=== PATIENT | female | born 1965 | race American Indian/Alaskan Native ===

== ENCOUNTER 2016-10-18 09:44 | Observation (INO) | payer BC, OTHER ==
[2016-10-18] MEDS ORDERED: Sodium Chloride 0.9% 1,000 ML IV ONE (10:07)
[2016-10-18] MEDS ORDERED: Sodium Chloride 0.9% 1,000 ML ONE (10:21)
[2016-10-18 10:40] LABS: BASO % 0.4 % (0.0-2.0); EOS % 0.1 % (0.0-4.0); LYMPH # 1.7 K/uL (1.0-4.3); LYMPH % 20.1 % (20.0-40.0); MEAN CELL VOLUME 79.8 fL (81.0-99.0); MEAN CORPUSCULAR HEMOGLOBIN 25.5 pg (27.0-31.0); MONO # 0.6 K/uL (0.0-0.8); MONO % 7.7 % (0.0-10.0); NEUT # 5.9 K/uL (1.8-7.0); NEUT % 71.7 % (50.0-75.0); NRBC % 0.1 % (0.0-2.0); RBC 5.1 Mil/uL (3.80-5.20); WHITE BLOOD COUNT 8.3 K/uL (4.8-10.8)
--- NOTE | 2016-10-18 10:44 | C.PDOC ---
History Of Present Illness 50 y/o female presents to the ED with complaints of vomiting and diarrhea since yesterday with associated abdominal pain. Patient reports pain is mild crampin, generalized and presents before diarrhea episode. Patient states vomiting stopped last night, but still has diarrhea today. Patient reports feeling weak and dehydrated. Denies fever, chills, chest pain, SOB or any other complaints. Pt's daughter sick last with with the flu. Time Seen by Provider: 10/18/16 10:00 Chief Complaint (Nursing): Abdominal Pain History Per: Patient History/Exam Limitations: no limitations Onset/Duration Of Symptoms: Hrs Current Symptoms Are (Timing): Still Present Severity: Moderate Location Of Pain/Discomfort: Diffuse Radiation Of Pain To:: None Quality Of Discomfort: "Pain" Associated Symptoms: Vomiting, Diarrhea. denies: Fever, Chills, Chest Pain Exacerbating Factors: None Alleviating Factors: None Recent travel outside of the [place]: No Past Medical History Reviewed: Historical Data, Nursing Documentation, Vital Signs Vital Signs: Last Vital Signs Temp 98.5 F 10/18/16 16:29 Pulse 73 10/18/16 16:29 Resp 20 10/18/16 16:29 BP 104/62 10/18/16 16:29 Pulse Ox 99 10/18/16 17:02 - Medical History PMH: Anemia, HTN Surgical History: No Surg Hx - [facility] Procedures INSPECTION OF LOWER INTESTINAL TRACT, ENDO (06/09/14) Family History: States: Unknown Family Hx - Social History Hx Tobacco Use: Yes Hx Alcohol Use: (FOR SPECIAL OCCASION) Hx Substance Use: No - Immunization History Hx Tetanus Toxoid Vaccination: No Hx Influenza Vaccination: No Hx Pneumococcal Vaccination: No Review Of Systems Constitutional: Positive for: Weakness, Other (dehydrated). Negative for: Fever , Chills Cardiovascular: Negative for: Chest Pain Respiratory: Negative for: Shortness of Breath Gastrointestinal: Positive for: Vomiting, Abdominal Pain, Diarrhea Physical Exam - Physical Exam Appears: Non-toxic, No Acute Distress Skin: Warm, Dry, No Rash Head: Atraumatic, Normacephalic Eye(s): bilateral: Normal Inspection, EOMI Oral Mucosa: Moist Neck: Normal, Normal ROM, Supple Chest: Symmetrical Cardiovascular: Rhythm Regular, No Murmur Respiratory: Normal Breath Sounds, No Rales, No Rhonchi, No Wheezing Gastrointestinal/Abdominal: Bowel Sounds (active), Soft, Tenderness (generalized , nonfocal), No Distention, No Guarding, No Rebound, No Hernia Extremity: Bilateral: Atraumatic, Normal Color And Temperature, Normal ROM Neurological/Psych: Oriented x3, Normal Speech Gait: Steady ED Course And Treatment - Laboratory Results Result Diagrams: 10/18/16 10:36 10/18/16 10:36 Lab Interpretation: Abnormal O2 Sat by Pulse Oximetry: 99 (room air) Pulse Ox Interpretation: Normal Medical Decision Making Medical Decision Making: Plan: * labs * pepcid * protonix * UA * IV fluids Progress: Obs-ED ED OBSERVATION Discharge: Yes Date of observation admission: 10/18/16 Time of observation admission: 10:20 - Observation admission statement Patient is being placed in observation because:: GI sx: vomit, diarrhea,abd pain - Goals of Observation Goals of observation are:: IV hydration and analgesics - Progress Note Progress Note: 10/18/16 Labs reviewed, hypoglycemia, no leukocytosis. will try oral orange juice and sandwich and observe 10/18/16 12:15 accucheck 49 Patient alert and awake, no abdominal pain 10/18/16 13:46 accucheck 50 10/18/16 14:47 accucheck 160 10/18/16 15:40 accucheck 107 10/18/16 14:54 Will continue to observe, repeat in one hour 10/18/16 16:07 repeat accucheck was 107. Patient reevaluated and is feeling better. She feels comfortable with discharge Disposition Counseled Patient/Family Regarding: Studies Performed, Diagnosis, Need For Followup, Rx Given - Disposition Disposition: HOME/ ROUTINE Disposition Time: 16:11 Condition: IMPROVED - POA Present On Arrival: Poor Glycemic Control - Clinical Impression Clinical Impression: Gastroenteritis, Hypoglycemia - PA / RESPIRATORY SUPERVISOR / Resident Statement MD/DO has reviewed & agrees with the documentation as recorded. - Scribe Statement The provider has reviewed the documentation as recorded by the Debbieibminerva Hendrix All medical record entries made by the Debbieibminerva were at my direction and personally dictated by me. I have reviewed the chart and agree that the record accurately reflects my personal performance of the history, physical exam, medical decision making, and the department course for this patient. I have also personally directed, reviewed, and agree with the discharge instructions and disposition.
[2016-10-18 11:05] LABS: ALBUMIN 3.7 g/dL (3.5-5.0)
[2016-10-18 11:08] LABS: AST/SGOT 52 U/L (14-36); BLOOD UREA NITROGEN 17 mg/dL (7-17); GFR AFRICAN-AMERICAN > 60; GFR NON-AFRICAN AMERICAN > 60
[2016-10-18 11:09] LABS: ALT/SGPT 31 U/L (9-52); CALCIUM 7.7 mg/dl (8.6-10.4); LIPASE 87 U/L (23-300)
[2016-10-18 13:48] LABS: SQUAMOUS EPITHIAL 3 /hpf (0-5); URINE BACTERIA RARE (<OCC); URINE BILIRUBIN NEGATIVE (NEGATIVE); URINE BLOOD 1+ (NEGATIVE); URINE CLARITY Clear (Clear); URINE COLOR Yellow (YELLOW); URINE GLUCOSE (UA) 2+ mg/dL (Normal); URINE LEUKOCYTE ESTERASE 3+ Leu/uL (Negative); URINE NITRATE NEGATIVE (NEGATIVE); URINE PROTEIN NEGATIVE (NEGATIVE); URINE UROBILINOGEN NORMAL mg/dL (0.2-1.0)
[2016-10-18] MEDS ORDERED: Dextrose 50% SYRINGE Inj (50 ml) IVP STA (13:58)
[2016-10-18] MEDS ORDERED: Dextrose 50% SYRINGE Inj (50 ml) ONE (14:09)
[2016-10-18 16:29] VITALS: BP 104/62; PULSE 73; RESP 20; TEMP 98.5
[2016-10-18 17:02] VITALS: O2SAT 99
== END 2016-10-18 16:12 | disposition home or self-care (01) ==
LOC: C.ER 09:44 → C.9OBSV 10:20
PROVIDERS: ADMIT Emergency Medicine; ATTEND Emergency Medicine
DX: K52.9 Noninfective gastroenteritis and colitis, unspecified (principal); E16.2 Hypoglycemia, unspecified; E86.0 Dehydration; I10 Essential (primary) hypertension; Z87.891 Personal history of nicotine dependence
CPT/HCPCS: 80053; 81001; 82948; 83690; 85025; 96374; 96375; 99285; G0378; J7040

== ENCOUNTER 2016-10-20 09:04 | Observation (INO) | payer BC ==
[2016-10-20 09:09] VITALS: BMI 25.8
[2016-10-20 10:11] LABS: MEAN PLATELET VOLUME 9.1 fL (7.2-11.7); NRBC % 0.1 % (0.0-2.0)
[2016-10-20 10:16] LABS: BASO % 0.7 % (0.0-2.0); CHLORIDE 100 mmol/L (98-107); EOS % 0.7 % (0.0-4.0); HEMATOCRIT 43.1 % (34.0-47.0); LYMPH # 1.7 K/uL (1.0-4.3); LYMPH % 31.3 % (20.0-40.0); MEAN CELL VOLUME 79.7 fL (81.0-99.0); MEAN CORPUSCULAR HEMOGLOBIN 25.5 pg (27.0-31.0); MONO # 0.6 K/uL (0.0-0.8); MONO % 10.9 % (0.0-10.0); RED CELL DISTRIBUTION WIDTH 15.4 % (11.5-14.5); SODIUM 137 mmol/L (132-148); WHITE BLOOD COUNT 5.5 K/uL (4.8-10.8)
[2016-10-20 10:18] LABS: GFR AFRICAN-AMERICAN > 60
[2016-10-20 10:19] LABS: ALB/GLOB RATIO 0.9 (1.0-2.1); ALKALINE PHOSPHATASE 74 U/L (38-126); ALT/SGPT 38 U/L (9-52); AST/SGOT 57 U/L (14-36); BILIRUBIN,TOTAL 0.8 mg/dL (0.2-1.3); BLOOD UREA NITROGEN 12 mg/dL (7-17); CARBON DIOXIDE 21 mmol/L (22-30); GLUCOSE,RANDOM 87 mg/dL (65-105); TOTAL PROTEIN 8.9 g/dL (6.3-8.3)
[2016-10-20 10:20] LABS: CALCIUM 8.3 mg/dl (8.6-10.4)
--- NOTE | 2016-10-20 10:23 | CT ---
PROCEDURE: CT HEAD WITHOUT CONTRAST. HISTORY: Dizziness COMPARISON: None available. TECHNIQUE: Axial computed tomography images were obtained through the head/brain without intravenous contrast. Radiation dose: Total exam DLP = 783.50 mGy-cm. This CT exam was performed using one or more of the following dose reduction techniques: Automated exposure control, adjustment of the mA and/or kV according to patient size, and/or use of iterative reconstruction technique. FINDINGS: HEMORRHAGE: No intracranial hemorrhage. BRAIN: Kerr-white matter differentiation is preserved. There is no mass, mass effect or abnormal extra-axial fluid collection. VENTRICLES: There is mild global parenchymal volume loss and proportionate enlargement of the ventricles and cortical sulci, advanced for the patient's age. CALVARIUM: The skull base and calvarium are normal. PARANASAL SINUSES: Predominantly clear. MASTOID AIR CELLS: Predominantly clear. OTHER FINDINGS: None. IMPRESSION: No acute intracranial abnormality. Mild global parenchymal volume loss, advanced for the patient's age.
[2016-10-20 10:25] LABS: RBC URINE < 1 /hpf (0-3); URINE BILIRUBIN NEGATIVE (NEGATIVE); URINE BLOOD NEGATIVE (NEGATIVE); URINE COLOR Straw (YELLOW); URINE GLUCOSE (UA) 3+ mg/dL (Normal); URINE KETONE NEGATIVE (NEGATIVE); URINE LEUKOCYTE ESTERASE NEG Leu/uL (Negative); URINE PROTEIN NEGATIVE (NEGATIVE); URINE UROBILINOGEN NORMAL mg/dL (0.2-1.0); WBC URINE 2 /hpf (0-5)
[2016-10-20 10:27] LABS: POTASSIUM 4.1 mmol/L (3.6-5.2)
--- NOTE | 2016-10-20 11:11 | C.PDOC ---
History Of Present Illness <Myranda Poole - Last Filed: 10/20/16 13:19> <Grisel Fuchs - Last Filed: 10/20/16 13:59> Patient is a 50 y/o female, whose PMH includes HTN, Diabetes, and vertigo, that presents to the ED for evaluation of episode of dizziness this morning at 3: 00am. Patient states that she woke up at 3:00 this morning to use bathroom, reports slurred speech, and reports having unsteady gait, and feeling of being "drunk". Patient states that she went back to sleep and woke up at 6:00 with her symptoms resolved. Patient was seen here in the ER 2 days ago for abdominal pain, nausea, and vomiting which has also resolved. Otherwise, denies any dizziness, headache, weakness, numbness, chest pain, shortness of breath, or any other associated symptoms at this time. (Grisel Fuchs) <Myranda Poole - Last Filed: 10/20/16 13:19> History Per: Patient History/Exam Limitations: no limitations Onset/Duration Of Symptoms: Hrs Current Symptoms Are (Timing): Gone Severity: None Pain Scale Rating Of: 0 Reports Recently: Seen In ED Recent travel outside of the [place]: No Additional History Per: Patient <Grisel Fuchs - Last Filed: 10/20/16 13:59> Time Seen by Provider: 10/20/16 09:20 Chief Complaint (Nursing): Dizziness/Lightheaded Past Medical History Reviewed: Historical Data, Nursing Documentation, Vital Signs - Medical History PMH: Anemia, Diabetes, HTN Family History: States: Unknown Family Hx - Social History Hx Tobacco Use: Yes Hx Alcohol Use: (FOR SPECIAL OCCASION) Hx Substance Use: No - Immunization History Hx Tetanus Toxoid Vaccination: No Hx Influenza Vaccination: No Hx Pneumococcal Vaccination: No <Grisel Fuchs - Last Filed: 10/20/16 13:59> Vital Signs: Last Vital Signs Temp 98.2 F 10/20/16 12:38 Pulse 60 10/20/16 12:38 Resp 18 10/20/16 12:38 BP 124/76 10/20/16 12:38 Pulse Ox 100 10/20/16 13:10 - [facility] Procedures INSPECTION OF LOWER INTESTINAL TRACT, ENDO (06/09/14) Review Of Systems Except As Marked, All Systems Reviewed And Found Negative. Constitutional: Negative for: Fever, Chills Eyes: Negative for: Vision Change Cardiovascular: Negative for: Chest Pain, Palpitations, Light Headedness Respiratory: Negative for: Shortness of Breath Gastrointestinal: Negative for: Nausea, Vomiting, Abdominal Pain Neurological: Positive for: Headache, Dizziness. Negative for: Weakness, Numbness, Change in Speech <Grisel Fuchs - Last Filed: 10/20/16 13:59> Physical Exam - Physical Exam Appears: Non-toxic, No Acute Distress Skin: Normal Color, Warm, Dry Head: Atraumatic, Normacephalic Eye(s): bilateral: Normal Inspection, PERRL, EOMI, Other (no nystagmus) Nose: Normal Oral Mucosa: Moist Neck: Normal ROM, Supple Chest: Symmetrical, No Tenderness Cardiovascular: Rhythm Regular, No Murmur Respiratory: Normal Breath Sounds, No Accessory Muscle Use, No Rales, No Rhonchi , No Wheezing Gastrointestinal/Abdominal: Bowel Sounds, Soft, No Tenderness, No Distention, No Guarding Extremity: Bilateral: Atraumatic, Normal Color And Temperature, Normal ROM Pulses: Left Radial: Normal Neurological/Psych: Oriented x3, Normal Speech, Normal Cognition, Normal Cranial Nerves, No Cerebellar Signs, Normal Motor, Normal Sensation, Other ( neuro intact) Gait: Steady <Grisel Fuchs - Last Filed: 10/20/16 13:59> ED Course And Treatment - Laboratory Results Result Diagrams: 10/20/16 10:05 10/20/16 10:05 <Myranda Poole - Last Filed: 10/20/16 13:19> - Laboratory Results Result Diagrams: 10/20/16 10:05 10/20/16 10:05 Lab Interpretation: No Acute Changes ECG: Interpreted By Me, Viewed By Me ECG Rhythm: Sinus Rhythm ECG Interpretation: No Acute Changes Rate From EC (bpm) O2 Sat by Pulse Oximetry: 100 (on RA) Pulse Ox Interpretation: Normal Progress Note: Head CT, EKG, labs ordered and reviewed. On reassessment, patient is resting comfortably in bed, no acute distress. No neurological deficits. Discussed case with DR Poole who agrees with plan for admission for TIA. Contact DR Laura Matthews who admits for Dr Navarro, and he accepts and asks to call Dr Kathleen for admitting orders. <Grisel Fuchs - Last Filed: 10/20/16 13:59> Supervising Attending Note - Supervising Attending Note The Documented history was done by the: Physician Roller Print Tender The documented physical exam was done by the: Physician Roller Print Tender The documented procedures were done by the: Physician Roller Print Tender - Attestation: I have personally seen and examined this patient.: Yes I have fully participated in the care of the patient.: Yes I have reviewed all pertinent clinical information, including history, physical exam and plan: Yes <Myranda Poole - Last Filed: 10/20/16 13:19> <Grisel Fuchs - Last Filed: 10/20/16 13:59> - Notes: Notes:: DIFFICULTY WALKING, SLURRED SPEECH @ 0200 NOW RESOLVED. CURRENTLY ASYMPT. EXAM ABOVE. ADMIT TIA (Myranda Poole) NIHSS Stroke Scale - Date/Time Evaluation Performed Date Performed: 10/20/16 Time Performed: 09:20 When Was NIHSS Performed: Baseline - How Severe is the Stroke Level of Consciousness: 0=Alert LOC to Questions: 0=Both comments correct LOC to commands: 0=Obeys both correctly Best Gaze: 0=Normal Visual: 0=No visual loss Facial: 0=Normal Motor Arm - Left: 0=No drift Motor Arm - Right: 0=No drift Motor Leg - Left: 0=No drift Motor Leg - Right: 0=No drift Limb Ataxia: 0=Absent Sensory: 0=Normal Best Language: 0=No aphasia Dysarthia: 0=Normal articulation Extinction & Inattention (Neglect): 0=Normal, no object Score: 0 <Grisel Fuchs - Last Filed: 10/20/16 13:59> rTPA Inclusion/Exclusion - Refusal of Treatment Patient Refused Treatment: No - Inclusion Criteria for Altepase Patient is 18 years or Older: Yes The Clinical Diagnosis of Ischemic Stroke That is Causing a Potentially Disabling Neurological Deficit: No Time of Onset is Well Established to be Less Than 270 Minute Before Treatment Would Begin: No Risk/Benefit Discussed With Patient/Family Member Present: No - Exclusion Criteria for Altepase Uncontrolled Hypertension at Time of Treatment (Systolic BP above 185 or Diastolic BP above 110 mmHg): No Active Internal Bleeding: No Known Bleeding Diathesis Including but Not Limited to: Platelets Below 100,000/ mm,PTT Above 40 sec After Heparin Use, Current Use of Oral Anitcoagulant With INR Greater Than 1.7 or PT Greater Than 15 secs: No Evidence of an Intracranial Hemorrhage: No Evidence of Major Acute Infarct With Signs Greater Than 1/3 MCA Territory: No Suspicion of Subarachnoid Hemorrhage on Pretreatment Evaluation Even if CT Head Negative For Hemorrhage: No - Warning to TPA With Conditions Following Conditions Weighed Against Anticipated Benefit: Yes Condition: Stroke Serevity Too Mild <Myranda Poole - Last Filed: 10/20/16 13:19> - Refusal of Treatment Patient Refused Treatment: No - Inclusion Criteria for Altepase Patient is 18 years or Older: Yes The Clinical Diagnosis of Ischemic Stroke That is Causing a Potentially Disabling Neurological Deficit: No Time of Onset is Well Established to be Less Than 270 Minute Before Treatment Would Begin: No Risk/Benefit Discussed With Patient/Family Member Present: No <Grisel Fuchs - Last Filed: 10/20/16 13:59> Disposition <Myranda Poole - Last Filed: 10/20/16 13:19> - Disposition Disposition Time: 11:15 - POA Present On Arrival: None <Grisel Fuchs - Last Filed: 10/20/16 13:59> - Disposition Disposition: HOSPITALIZED Condition: STABLE - Clinical Impression Clinical Impression: TIA (transient ischemic attack), Dizziness <Myranda Poole - Last Filed: 10/20/16 13:19> - PA / BALLOON SELLER / Resident Statement / has reviewed & agrees with the documentation as recorded. - Scribe Statement The provider has reviewed the documentation as recorded by the Scribe <Grisel Fuchs - Last Filed: 10/20/16 13:59> - Scribe Statement Iraida Matthews All medical record entries made by the Scribe were at my direction and personally dictated by me. I have reviewed the chart and agree that the record accurately reflects my personal performance of the history, physical exam, medical decision making, and the department course for this patient. I have also personally directed, reviewed, and agree with the discharge instructions and disposition. (Grisel Fuchs) Decision To Admit - Pt Status Changed To: Hospital Disposition Of: Observation - . Bed Request Type: Telemetry Admitting Physician: Neto Matthews <Grisel Fuchs - Last Filed: 10/20/16 13:59> - . Patient Diagnosis: TIA (transient ischemic attack), Dizziness
--- NOTE | 2016-10-20 16:36 | CP.PCM.HP ---
History of Present Illness - History of Present Illness History of Present Illness: Patient is a 50 y/o female, whose PMH includes HTN, Diabetes, and vertigo, that presents to the ED for evaluation of episode of dizziness this morning at 3: 00am. Patient states that she woke up at 3:00 this morning to use bathroom, reports slurred speech, and reports having unsteady gait, and feeling of being "drunk". Patient states that she went back to sleep and woke up at 6:00 with her symptoms resolved. Patient was seen here in the ER 2 days ago for abdominal pain, nausea, and vomiting which has also resolved. Otherwise, denies any dizziness, headache, weakness, numbness, chest pain, shortness of breath, or any other associated symptoms at this time. Present on Admission - Present on Admission Any Indicators Present on Admission: No History of DVT/PE: No History of Uncontrolled Diabetes: No Urinary Catheter: No Decubitus Ulcer Present: No Review of Systems - Review of Systems All systems: reviewed and no additional remarkable complaints except (As mentioned in HPI) Past Patient History - Infectious Disease Hx of Infectious Diseases: None - Tetanus Immunizations Tetanus Immunization: Unknown - Past Medical History & Family History Past Medical History?: Yes - Past Social History Smoking Status: Never Smoked - CARDIAC Hx Cardiac Disorders: Yes Hx Hypertension: Yes - PULMONARY Hx Respiratory Disorders: No - NEUROLOGICAL Hx Neurological Disorder: No - HEENT Hx HEENT Problems: No - RENAL Hx Chronic Kidney Disease: No - ENDOCRINE/METABOLIC Hx Endocrine Disorders: No - HEMATOLOGICAL/ONCOLOGICAL Hx Blood Disorders: Yes Hx Anemia: Yes - INTEGUMENTARY Hx Dermatological Problems: No - MUSCULOSKELETAL/RHEUMATOLOGICAL Hx Musculoskeletal Disorders: No Hx Falls: No - GASTROINTESTINAL Hx Gastrointestinal Disorders: No - GENITOURINARY/GYNECOLOGICAL Hx Genitourinary Disorders: No - PSYCHIATRIC Hx Psychophysiologic Disorder: No Hx Substance Use: No - SURGICAL HISTORY Hx Surgeries: Yes Hx Hysterectomy: Yes - ANESTHESIA Hx Anesthesia: Yes Hx Anesthesia Reactions: No Hx Malignant Hyperthermia: No Meds Home Medications: Home Medication List Medication Instructions Recorded Confirmed Type Insulin Glargine, Recombina 8 unit SQ HS #1 vial 10/23/16 Rx [Lantus] Allergies/Adverse Reactions: Allergies Allergy/AdvReac Type Severity Reaction Status Date / Time Sulfa (Sulfonamide Allergy Verified 10/20/16 09:13 Antibiotics) EGGPLANT Allergy Intermediate ITCHING Uncoded 10/20/16 09:13 Physical Exam - Head Exam Head Exam: NORMAL INSPECTION - Eye Exam Eye Exam: Normal appearance - ENT Exam ENT Exam: Mucous Membranes Moist - Respiratory Exam Respiratory Exam: Clear to Auscultation Bilateral, NORMAL BREATHING PATTERN - Cardiovascular Exam Cardiovascular Exam: REGULAR RHYTHM, +S1, +S2 - GI/Abdominal Exam GI & Abdominal Exam: Normal Bowel Sounds, Soft - Extremities Exam Extremities exam: Positive for: normal inspection - Neurological Exam Neurological exam: Alert, Oriented x3 - Psychiatric Exam Psychiatric exam: Normal Affect, Normal Mood Results - Vital Signs Recent Vital Signs: Last Vital Signs Temp 98.8 F 10/20/16 15:54 Pulse 67 10/20/16 15:54 Resp 18 10/20/16 15:54 BP 114/72 10/20/16 15:54 Pulse Ox 97 10/20/16 15:54 - Labs Result Diagrams: 10/20/16 10:05 10/20/16 10:05 Assessment & Plan - Assessment and Plan (Free Text) Assessment: Dizziness Hypoglycemia Hypertension History of diabetes Neurology consult IV hydration Hydrochlorothiazide Aspirin Norvasc Lisinopril Metoprolol Accu-Chek Insulin sliding scale Metformin DVT/GI prophylax
[2016-10-20] MEDS: (Lantus) Insulin Glargine, Recombinant SC SCH (21:30)
[2016-10-20] MEDS: (Novolog) Insulin Aspart, Recombinant 100 u/ml 10 ml vial SC SCH (21:31)
[2016-10-21] MEDS: (Novolog) Insulin Aspart, Recombinant 100 u/ml 10 ml vial SC SCH ×4 (07:57→21:38)
[2016-10-21] MEDS: Pantoprazole 20 mg EC Tab PO SCH (09:50)
--- NOTE | 2016-10-21 13:48 | CP.PCM.PN ---
Subjective - Date & Time of Evaluation Date of Evaluation: 10/21/16 Time of Evaluation: 13:48 - Subjective Subjective: Patient seen and examined Feels better Objective - Vital Signs/Intake and Output Vital Signs (last 24 hours): Temp Pulse Resp BP Pulse Ox 98.4 F 64 17 116/75 100 10/21/16 07:25 10/21/16 07:25 10/21/16 07:25 10/21/16 09:50 10/21/16 07:25 Intake and Output: 10/21/16 10/21/16 06:59 18:59 Intake Total 310 Balance 310 - Medications Medications: Current Medications Acetaminophen (Tylenol 325mg Tab) 650 mg PO Q6 PRN PRN Reason: headache Last Admin: 10/20/16 17:28 Dose: 650 mg Amlodipine Besylate (Norvasc) 2.5 mg PO DAILY PENDING SALE TO [facility] Last Admin: 10/21/16 09:50 Dose: 2.5 mg Aspirin (Aspirin) 325 mg PO DAILY PENDING SALE TO [facility] Last Admin: 10/21/16 09:50 Dose: 325 mg Dicyclomine HCl (Bentyl) 10 mg PO QID PENDING SALE TO [facility] Last Admin: 10/21/16 13:19 Dose: 10 mg Hydrochlorothiazide (Microzide) 12.5 mg PO DAILY PENDING SALE TO [facility] Last Admin: 10/21/16 13:19 Dose: 12.5 mg Insulin Aspart (Novolog) 0 unit SC [facility] PENDING SALE TO [facility] PRN Reason: Protocol Last Admin: 10/21/16 07:57 Dose: Not Given Insulin Glargine (Lantus) 14 unit SC HS PENDING SALE TO [facility] Last Admin: 10/20/16 21:30 Dose: Not Given Lisinopril (Zestril) 10 mg PO DAILY PENDING SALE TO [facility] Last Admin: 10/21/16 09:50 Dose: 10 mg Losartan Potassium (Cozaar) 50 mg PO DAILY PEND[facility] S[facility] Last Admin: 10/21/16 09:51 Dose: 50 mg Metformin HCl (Glucophage) 500 mg PO BIDBS PENDING SALE TO [facility] Last Admin: 10/21/16 12:27 Dose: Not Given Metoprolol Tartrate (Lopressor) 25 mg PO BID PENDING S[facility] Last Admin: 10/21/16 09:50 Dose: 25 mg Pantoprazole Sodium (Protonix Ec Tab) 20 mg PO DAILY PENDING S[facility] Last Admin: 10/21/16 09:50 Dose: 20 mg Pneumococcal Polyvalent Vaccine (Pneumovax 23 Vaccine) 0.5 ml IM .ONCE ONE Stop: 10/22/16 10:01 Rosuvastatin Calcium (Crestor) 5 mg PO HS PENDING SALE TO [facility] Last Admin: 10/20/16 21:29 Dose: 5 mg - Head Exam Head Exam: NORMAL INSPECTION - Eye Exam Eye Exam: Normal appearance - ENT Exam ENT Exam: Mucous Membranes Moist - Respiratory Exam Respiratory Exam: Clear to Ausculation Bilateral, NORMAL BREATHING PATTERN - Cardiovascular Exam Cardiovascular Exam: REGULAR RHYTHM, +S1, +S2 - GI/Abdominal Exam GI & Abdominal Exam: Soft, Normal Bowel Sounds - Extremities Exam Extremities Exam: Normal Inspection Assessment and Plan - Assessment and Plan (Free Text) Assessment: Dizziness ? TIA Hypoglycemia Hypertension History of diabetes Awaiting Neurology consult IV hydration Hydrochlorothiazide Aspirin Norvasc Lisinopril Metoprolol Accu-Chek Insulin sliding scale Metformin DVT/GI prophylax
--- NOTE | 2016-10-21 13:49 | MRI ---
PROCEDURE: MRI BRAIN WITHOUT CONTRAST HISTORY: slurred speech COMPARISON: Noncontrast head CT from 10/20/2016. TECHNIQUE: Multiplanar, multisequence MR images of the brain were obtained without intravenous contrast enhancement. FINDINGS: HEMORRHAGE: None DWI: No evidence of an acute or early subacute infarction. BRAIN PARENCHYMA: There is no mass, mass effect or abnormal extra-axial fluid collection. There is no territorial infarction. The midline sagittal structures are normal. VENTRICLES: There is mild global parenchymal volume loss, slightly advanced for the patient's age. CRANIUM: There is normal bone marrow signal pattern. ORBITS: Grossly unremarkable. PARANASAL SINUSES/MASTOIDS: Predominantly clear. VASCULAR SYSTEM: There are normal signal voids in the larger intracranial arteries. OTHER FINDINGS: None. IMPRESSION: No acute intracranial abnormality. Specifically, no evidence of acute infarction.
--- NOTE | 2016-10-21 14:02 | CP.PCM.CON ---
History of Present Illness - History of Present Illness History of Present Illness: NEURO CONSULT NOTE: 10/21/16 CHIEF COMPLAINT:DIZZINESS, ? SLURRED SPEECH. HPI: 50 YEAR OLD WOMAN WITH HISTORY OF HTN, HLD, DM2 , VERTIGO WHO PRESENTS WITH DIZZINESS IN TERMS OF LIGHTHEADEDNESS AND MILD SPINNING OF THE ROOM WITH EPISODE OF SLURRED SPEECH AND GENERALIZED WEAKNESS. CT HEAD AND MRI BRAIN SHOWED NO ACUTE ABNORMALITIES, JUST MILD ATROPHY. bLOOD SUGAR WAS 48 AND COUPLE READINGS OF LOW BS. CURRENTLY IN NOW ACUTE DISTRESS, MOVING ALL EXTREMITIES. ROS: 14 POINT REVIEW OF SYMPTOMS IS NEGATIVE PER HPI. ALLERGIES: SULFA SOCIAL HISTORY: NO ILLICIT DRUG USE, SMOKING, OR ETOH USE. FAMILY: NON CONTRIBUTORY. MEDICATIONS: REVIEWED BY NURSE'S RECONCILIATION SHEET. PAST MEDICAL HISTORY: HTN, DM2, HLD, VERTIGO PHYSICAL EXAM: VITAL SIGNS: REVIEWED BY THE CHART GENERAL EXAM: PATIENT SEEN IN BED, IN NO ACUTE DISTRESS HEENT: PERRLA, EOMI, NECK SUPPLE, NO JVD, NO ADENOPATHY CVS: S1, S2, RRR, NO MURMURS NOTED LUNGS: CLEAR TO AUSCULTATION, NO ADVENTITIOUS SOUNDS ABDOMEN: SOFT AND NONTENDER EXTREMITIES: NO CLUBBING OR CYANOSIS. PP 2+ B/L NEURO: PT IS ALERT AND ORIENTED TO PERSON, PLACE, AND YEAR. , RECALL TO 5 MINUTES 1/3, POOR ATTENTION SPAN. SPEECH IS FLUENT WITHOUT ERRORS, CN II-XII INTACT, LEGALLY BLIND IN BOTH EYES. MOTOR EXAM: NORMAL TONE, NORMAL BULK OF MUSCLE, MOVES ALL EXTREMITIES EQUALLY, NO PRONATOR DRIFT SEEN SENSORY EXAM: DECREASED LIGHT TOUCH, PIN PRICK UP TO CALVES B/L, PROPRIOCEPTION IS INTACT , DECREASED VIBRATION AT TOES AND KNESS DEEP TENDON REFLEXES: 2+ THROUGHOUT AND ABSENT AT KNEES AND ANKLES. COORDINATION: FINGER TO NOSE IS INTACT. GAIT:DEFERRED. LABS: REVIEWED BY THE CHART. ASSESSMENT AND PLAN: 50 YEAR OLD WOMAN WITH HISTORY OF HTN, HLD, DM2 , VERTIGO WHO PRESENTS WITH DIZZINESS IN TERMS OF LIGHTHEADEDNESS AND MILD SPINNING OF THE ROOM WITH EPISODE OF SLURRED SPEECH AND GENERALIZED WEAKNESS. CT HEAD AND MRI BRAIN SHOWED NO ACUTE ABNORMALITIES, JUST MILD ATROPHY. BLOOD SUGAR WAS 48 AND COUPLE READINGS OF LOW BS. CURRENTLY IN NOW ACUTE DISTRESS, MOVING ALL EXTREMITIES. IMPRESSION: GENERALIZED WEAKNESS AND DIZZINESS SECONDARY TO HYPOGLYCEMIA TRANSIENT. 1. C/W ASA 81 MG , ATORVASTATIN 40 MG PO DAILY FOR STROKE PREVENTION 2. KEEP BP BTW 123-130 MM HG 3. KEEP BLOOD SUGARS BTW 140-180. DIABETIC DIET ADVISED. DIABETIC EDUCATION ADVISED. 4. NEEDS PHYSICAL THERAPY EVALUATION. AND BRANDEE AT TCU 5. C/W PRESENT MEDICAL MANAGEMENT. THANK YOU Keshawn JACKSON MD Past Patient History - Infectious Disease Hx of Infectious Diseases: None - Tetanus Immunizations Tetanus Immunization: Unknown - Past Medical History & Family History Past Medical History?: Yes - Past Social History Smoking Status: Never Smoked - CARDIAC Hx Cardiac Disorders: Yes Hx Hypertension: Yes - PULMONARY Hx Respiratory Disorders: No - NEUROLOGICAL Hx Neurological Disorder: No - HEENT Hx HEENT Problems: No - RENAL Hx Chronic Kidney Disease: No - ENDOCRINE/METABOLIC Hx Endocrine Disorders: No - HEMATOLOGICAL/ONCOLOGICAL Hx Blood Disorders: Yes Hx Anemia: Yes - INTEGUMENTARY Hx Dermatological Problems: No - MUSCULOSKELETAL/RHEUMATOLOGICAL Hx Musculoskeletal Disorders: No Hx Falls: No - GASTROINTESTINAL Hx Gastrointestinal Disorders: No - GENITOURINARY/GYNECOLOGICAL Hx Genitourinary Disorders: No - PSYCHIATRIC Hx Psychophysiologic Disorder: No Hx Substance Use: No - SURGICAL HISTORY Hx Surgeries: Yes Hx Hysterectomy: Yes - ANESTHESIA Hx Anesthesia: Yes Hx Anesthesia Reactions: No Hx Malignant Hyperthermia: No Meds Allergies/Adverse Reactions: Allergies Allergy/AdvReac Type Severity Reaction Status Date / Time Sulfa (Sulfonamide Allergy Verified 10/20/16 09:13 Antibiotics) EGGPLANT Allergy Intermediate ITCHING Uncoded 10/20/16 09:13 - Medications Medications: Current Medications Acetaminophen (Tylenol 325mg Tab) 650 mg PO Q6 PRN PRN Reason: headache Last Admin: 10/20/16 17:28 Dose: 650 mg Amlodipine Besylate (Norvasc) 2.5 mg PO DAILY [facility] Last Admin: 10/21/16 09:50 Dose: 2.5 mg Aspirin (Aspirin) 325 mg PO DAILY [facility] Last Admin: 10/21/16 09:50 Dose: 325 mg Dicyclomine HCl (Bentyl) 10 mg PO QID [facility] Last Admin: 10/21/16 13:19 Dose: 10 mg Hydrochlorothiazide (Microzide) 12.5 mg PO DAILY [facility] Last Admin: 10/21/16 13:19 Dose: 12.5 mg Insulin Aspart (Novolog) 0 unit SC ACHS [facility] PRN Reason: Protocol Last Admin: 10/21/16 07:57 Dose: Not Given Insulin Glargine (Lantus) 14 unit SC [facility] Last Admin: 10/20/16 21:30 Dose: Not Given Lisinopril (Zestril) 10 mg PO DAILY [facility] Last Admin: 10/21/16 09:50 Dose: 10 mg Losartan Potassium (Cozaar) 50 mg PO DAILY [facility] Last Admin: 10/21/16 09:51 Dose: 50 mg [facility] Last Admin: 10/21/16 12:27 Dose: Not Given Metoprolol Tartrate (Lopressor) 25 mg PO BID [facility] Last Admin: 10/21/16 09:50 Dose: 25 mg Pantoprazole Sodium (Protonix Ec Tab) 20 mg PO DAILY [facility] Last Admin: 10/21/16 09:50 Dose: 20 mg Pneumococcal Polyvalent Vaccine (Pneumovax 23 Vaccine) 0.5 ml IM .ONCE ONE Stop: 10/22/16 10:01 Rosuvastatin Calcium (Crestor) 5 mg PO [facility] Last Admin: 10/20/16 21:29 Dose: 5 mg Results - Vital Signs Recent Vital Signs: Last Vital Signs Temp 98.4 F 10/21/16 07:25 Pulse 64 10/21/16 07:25 Resp 17 10/21/16 07:25 BP 116/75 10/21/16 09:50 Pulse Ox 100 10/21/16 07:25 - Labs Result Diagrams: 10/20/16 10:05 10/20/16 10:05 Labs: Laboratory Results - last 24 hr 10/20/16 10/20/16 10/20/16 16:49 16:50 17:24 POC Glucose (mg/dL) 41 L 48 L 49 L 10/20/16 10/20/16 10/20/16 17:26 21:07 23:59 POC Glucose (mg/dL) 63 L 71 122 H 10/21/16 10/21/16 10/21/16 04:25 06:39 12:48 POC Glucose (mg/dL) 84 201 H 189 H
--- NOTE | 2016-10-21 14:03 | CARD ---
APPROVED REPORT EKG Measurement Heart [id number] <Conclusion> Normal sinus rhythm Cannot rule out Anterior infarct, age undetermined Abnormal ECG
[2016-10-21] MEDS: (Lantus) Insulin Glargine, Recombinant SC SCH (21:39)
[2016-10-22] MEDS: (Novolog) Insulin Aspart, Recombinant 100 u/ml 10 ml vial SC SCH ×5 (08:02→22:04)
[2016-10-22 08:51] LABS: CHOLESTEROL 98 mg/dL (0-199)
[2016-10-22] MEDS ORDERED: Pneumococcal 23-Valent Vaccine IM ONE (10:00)
[2016-10-22] MEDS: Pantoprazole 20 mg EC Tab PO SCH (10:16)
--- NOTE | 2016-10-22 13:25 | CP.PCM.PN ---
Subjective - Date & Time of Evaluation Date of Evaluation: 10/22/16 Time of Evaluation: 11:45 - Subjective Subjective: Patient seen and examined No events overnight Objective - Vital Signs/Intake and Output Vital Signs (last 24 hours): Temp Pulse Resp BP Pulse Ox 98 F 65 20 97/59 L 98 10/22/16 07:00 10/22/16 07:00 10/22/16 07:00 10/22/16 07:00 10/22/16 07:00 - Medications Medications: Current Medications Acetaminophen (Tylenol 325mg Tab) 650 mg PO Q6 PRN PRN Reason: headache Last Admin: 10/20/16 17:28 Dose: 650 mg Amlodipine Besylate (Norvasc) 2.5 mg PO DAILY [facility] Last Admin: 10/22/16 10:11 Dose: 2.5 mg Aspirin (Aspirin) 325 mg PO DAILY [facility] Last Admin: 10/22/16 10:09 Dose: 325 mg Dicyclomine HCl (Bentyl) 10 mg PO QID [facility] Last Admin: 10/22/16 10:16 Dose: 10 mg Hydrochlorothiazide (Microzide) 12.5 mg PO DAILY [facility] Last Admin: 10/22/16 10:11 Dose: 12.5 mg Insulin Aspart (Novolog) 0 unit SC [facility] PRN Reason: Protocol Last Admin: 10/22/16 12:24 Dose: Not Given Insulin Glargine (Lantus) 14 unit SC [facility] Last Admin: 10/21/16 21:39 Dose: Not Given Lisinopril (Zestril) 10 mg PO DAILY [facility] Last Admin: 10/22/16 10:09 Dose: Not Given Losartan Potassium (Cozaar) 50 mg PO DAILY [facility] Last Admin: 10/22/16 10:11 Dose: 50 mg Metformin HCl (Glucophage) 500 mg PO BIDBS [facility] Last Admin: 10/22/16 08:01 Dose: Not Given Metoprolol Tartrate (Lopressor) 25 mg PO BID [facility] Last Admin: 10/22/16 10:12 Dose: Not Given Pantoprazole Sodium (Protonix Ec Tab) 20 mg PO DAILY [facility] Last Admin: 10/22/16 10:16 Dose: 20 mg Rosuvastatin Calcium (Crestor) 5 mg PO HS [facility] Last Admin: 10/21/16 21:36 Dose: 5 mg - Head Exam Head Exam: NORMAL INSPECTION - Eye Exam Eye Exam: Normal appearance - ENT Exam ENT Exam: Mucous Membranes Moist - Respiratory Exam Respiratory Exam: Clear to Ausculation Bilateral, NORMAL BREATHING PATTERN - Cardiovascular Exam Cardiovascular Exam: REGULAR RHYTHM, +S1, +S2 - GI/Abdominal Exam GI & Abdominal Exam: Soft, Normal Bowel Sounds - Extremities Exam Extremities Exam: Normal Inspection - Neurological Exam Neurological Exam: Alert, Oriented x3 Assessment and Plan - Assessment and Plan (Free Text) Assessment: Dizziness Hypoglycemia Hypertension History of diabetes Neurology consult appreciated IV hydration Hydrochlorothiazide Aspirin Norvasc Lisinopril Metoprolol Accu-Chek Insulin sliding scale Metformin Possible DC home in morning if remains clinically stable DVT/GI prophylax
[2016-10-22] MEDS: (Lantus) Insulin Glargine, Recombinant SC SCH (22:04)
[2016-10-22] MEDS ORDERED: Sodium Chloride 0.9% 1,000 ML IV SCH (23:45)
[2016-10-23] MEDS: (Novolog) Insulin Aspart, Recombinant 100 u/ml 10 ml vial SC SCH ×3 (07:58→18:12)
[2016-10-23] MEDS: Pantoprazole 20 mg EC Tab PO SCH (10:23)
[2016-10-23 11:38] VITALS: O2SAT 100
[2016-10-23 16:24] VITALS: BP 104/65; PULSE 55; RESP 18; TEMP 98.2
--- NOTE | 2016-10-23 17:21 | CP.PCM.PN ---
Subjective - Date & Time of Evaluation Date of Evaluation: 10/23/16 Time of Evaluation: 17:21 - Subjective Subjective: PT CLEARED FOR D/C HOME TODAY PER DR. ERAZO. UPON DISCUSSING D/C PLAN, PT VOICED CONCERNS ABOUT WHY SHE WAS ADMITTED. 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 PT ADMITS TO TAKING HER INSULINS AND PO DM MEDS WHILE SICK. SHE WANTED DR. GARCIA (HER PRIMARY MACHINE PACK ASSEMBLER TO BE NOTIFIED PRIOR TO D/C). I SPOKE WITH DR. GARCIA AND INFORMED HER OF RECENT HOSPITALIZATION AND LABS. PER DR. GARCIA, PT TO SEE HER IN OFFICE TOMORROW MORNING AND TO STOP TAKING THE HUMALOG; MAY CONTINUE GLIMIPERIDE AND METFORMIN, LANTUS TO BE DECREASED TO 8 UNITS QHS. ALL OTHER MEDS CONTINUE THE SAME. LENGTHY DISCUSSION WITH PT REGARDING EATING PROPERLY WHILE ON DM MEDICATIONS DONE. PT IN AGREEMENT WITH D/C PLAN AND VERBALIZES UNDERSTANDING OF ALL D/C AND F/U INFORMATION. NO FURTHER ORDERS. Objective - Vital Signs/Intake and Output Vital Signs (last 24 hours): Temp Pulse Resp BP Pulse Ox 98.2 F 55 L 18 104/65 100 10/23/16 16:00 10/23/16 16:00 10/23/16 16:00 10/23/16 16:00 10/23/16 16:00 - Medications Medications: Current Medications Acetaminophen (Tylenol 325mg Tab) 650 mg PO Q6 PRN PRN Reason: headache Last Admin: 10/20/16 17:28 Dose: 650 mg Amlodipine Besylate (Norvasc) 2.5 mg PO DAILY [facility] Last Admin: 10/23/16 10:23 Dose: 2.5 mg Aspirin (Aspirin) 325 mg PO DAILY [facility] Last Admin: 10/23/16 10:23 Dose: 325 mg Dicyclomine HCl (Bentyl) 10 mg PO QID [facility] Last Admin: 10/23/16 14:16 Dose: 10 mg Hydrochlorothiazide (Microzide) 12.5 mg PO DAILY [facility] Last Admin: 10/23/16 10:24 Dose: 12.5 mg Ceftriaxone Sodium 1 gm/ (Sodium Chloride) 100 mls @ 100 mls/hr IVPB DAILY [facility] Sodium Chloride (Sodium Chloride 0.9%) 1,000 mls @ 100 mls/hr IV .Q10H ADARSH Insulin Aspart (Novolog) 0 unit SC [facility] PRN Reason: Protocol Last Admin: 10/23/16 12:24 Dose: Not Given Insulin Glargine (Lantus) 14 unit SC [facility] Last Admin: 10/22/16 22:04 Dose: Not Given Lisinopril (Zestril) 10 mg PO DAILY [facility] Last Admin: 10/23/16 10:23 Dose: 10 mg Losartan Potassium (Cozaar) 50 mg PO DAILY [facility] Last Admin: 10/23/16 10:24 Dose: 50 mg [facility] Last Admin: 10/23/16 07:02 Dose: 500 mg Metoprolol Tartrate (Lopressor) 25 mg PO BID [facility] Last Admin: 10/23/16 10:23 Dose: 25 mg Pantoprazole Sodium (Protonix Ec Tab) 20 mg PO DAILY [facility] Last Admin: 10/23/16 10:23 Dose: 20 mg Potassium Chloride (K-Dur 20 Meq Er Tab) 40 meq PO DAILY [facility] Rosuvastatin Calcium (Crestor) 5 mg PO [facility] Last Admin: 10/22/16 22:19 Dose: 5 mg
[2016-10-23] MEDS ORDERED: Potassium Chloride 20 mEq ER Tab PO SCH (23:44)
--- NOTE | 2016-10-24 13:25 | VASCLAB ---
PROCEDURE: HISTORY: TIA COMPARISON: None available. TECHNIQUE: Grayscale and duplex Doppler evaluation of the cervical carotid and vertebral arteries were performed. The common carotid, carotid bifurcations and cervical Internal Carotid Artery (ICA) and proximal External Carotid Artery (ECA) were evaluated. The vertebral arteries were evaluated for gross patency and flow direction. Report prepared by Stan Renteria, BS, RVT FINDINGS: RIGHT CAROTID ARTERIES: 1. Common Carotid Artery: No significant focal plaque formation of the right common carotid artery. Maximum Peak Systolic velocity: 60 cm/sec: End-diastolic velocity 16 cm/sec. 2. Carotid Bifurcation: plaque formation. Maximum Peak Systolic velocity: 49 cm/sec: End-diastolic velocity 16 cm/sec. 3. Internal Carotid Artery: Plaque description: 3.1. Proximal Segment: Peak systolic velocity 67 cm/sec: End-diastolic velocity 28 cm/sec - % stenosis 0-15% 3.2. Middle Segment: Peak systolic velocity 75 cm/sec: End-diastolic velocity 31 cm/sec - % stenosis 0-15% 3.3. Distal Segment: Peak systolic velocity 76 cm/sec: End-diastolic velocity 32 cm/sec - % stenosis 0-15% 4. External Carotid Artery: No significant focal plaque formation. Peak systolic velocity 80 cm/sec 5. ICA/CCA Ratio: 1.3 LEFT CAROTID ARTERIES: 1. Common Carotid Artery: No significant focal plaque formation of the left common carotid artery. Maximum Peak Systolic velocity: 73 cm/sec: End-diastolic velocity 18 cm/sec. 2. Carotid Bifurcation: plaque formation. Maximum Peak Systolic velocity: 60 cm/sec: End-diastolic velocity 17 cm/sec. 3. Internal Carotid Artery: Plaque description: 3.1. Proximal Segment: Peak systolic velocity 60 cm/sec: End-diastolic velocity 24 cm/sec - % stenosis 0-15% 3.2. Middle Segment: Peak systolic velocity 70 cm/sec: End-diastolic velocity 26 cm/sec - % stenosis 0-15% 3.3. Distal Segment: Peak systolic velocity 104 cm/sec: End-diastolic velocity 39 cm/sec - % stenosis 0-15% 4. External Carotid Artery: No significant focal plaque formation. Peak systolic velocity 91 cm/sec 5. ICA/CCA Ratio: 1.4 VERTEBRAL ARTERIES: 1. Right Vertebral Artery: The right vertebral artery flow direction is antegrade. 2. Left Vertebral Artery: The left vertebral artery flow direction is antegrade. OTHER FINDINGS: 1. Right Brachial Blood pressure: 110 mmHg. 2. Left Brachial Blood pressure: 112 mmHg. IMPRESSION: RIGHT: Duplex scan does not suggest hemodynamically significant stenosis of the right extracranial carotid arteries. LEFT: Duplex scan does not suggest hemodynamically significant stenosis of the left extracranial carotid arteries.
== END 2016-10-23 19:00 | disposition home or self-care (01) ==
LOC: C.ER 09:04 → C.9E 11:17 → C.6T 11:17 → INTOOBSV 10-23 10:05 → OBSVTOIN 10-23 10:05
PROVIDERS: ADMIT Internal Medicine Nephrology; ATTEND Internal Medicine Nephrology
DX: E11.649 Type 2 diabetes mellitus with hypoglycemia without coma (principal); I10 Essential (primary) hypertension; D64.9 Anemia, unspecified; E78.5 Hyperlipidemia, unspecified; R47.81 Slurred speech; H54.8 Legal blindness, as defined in USA; Z87.891 Personal history of nicotine dependence; Z79.84 Long term (current) use of oral hypoglycemic drugs
CPT/HCPCS: 36415; 70450; 70551; 80053; 80061; 81001; 82009; 82948; 83036; 85025; 93005; 93880; 97116; 97162; 97165; 97530; 99285; G0378; G8978; G8979; G8987; G8988; G8989

== ENCOUNTER 2017-07-25 19:52 | Inpatient (IN) | payer BC ==
[2017-07-25 19:53] VITALS: BMI 25.8
[2017-07-25 20:06] VITALS: RESP 20
[2017-07-25] MEDS ORDERED: Sodium Chloride 0.9% 1,000 ML IV ONE (20:14)
--- NOTE | 2017-07-25 20:17 | C.PDOC ---
History Of Present Illness 51 y/o female presents to by ALS. As per daughter patient complaints of confusion and weakness and his accucheck was 28. 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 Patient currently states he feels better. Chief Complaint (Nursing): Medical Clearance History Per: Patient History/Exam Limitations: no limitations Onset/Duration Of Symptoms: Hrs Current Symptoms Are (Timing): Still Present Recent travel outside of the [place]: No Past Medical History Reviewed: Historical Data, Nursing Documentation, Vital Signs Vital Signs: Last Vital Signs Temp 99.4 F 07/25/17 20:00 Pulse 96 H 07/25/17 20:00 Resp 20 07/25/17 20:00 BP 167/72 H 07/25/17 20:00 Pulse Ox 99 07/25/17 23:17 - Medical History PMH: Anemia, Diabetes, HTN, Hypercholesterolemia - [facility] Procedures INSPECTION OF LOWER INTESTINAL TRACT, ENDO (06/09/14) Family History: States: Unknown Family Hx - Social History Hx Tobacco Use: Yes Hx Alcohol Use: Yes (for special occasion) Hx Substance Use: No - Immunization History Hx Tetanus Toxoid Vaccination: No Hx Influenza Vaccination: No Hx Pneumococcal Vaccination: No Review Of Systems Constitutional: Negative for: Fever, Chills Cardiovascular: Negative for: Chest Pain, Palpitations Respiratory: Negative for: Shortness of Breath Gastrointestinal: Negative for: Nausea, Vomiting, Abdominal Pain, Diarrhea Neurological: Negative for: Weakness, Numbness, Confusion, Headache Physical Exam - Physical Exam Appears: Well, Non-toxic, No Acute Distress Skin: Normal Color, Warm, Dry Head: Atraumatic, Normacephalic Eye(s): bilateral: Normal Inspection Oral Mucosa: Moist Neck: Supple Chest: Symmetrical, No Tenderness Cardiovascular: Rhythm Regular Respiratory: Normal Breath Sounds, No Decreased Breath Sounds, No Rales, No Rhonchi, No Wheezing Gastrointestinal/Abdominal: Soft, No Tenderness, No Distention, No Guarding, No Rebound Extremity: Normal ROM, No Pedal Edema, No Deformity, No Swelling Extremity: Bilateral: Normal Color And Temperature, Normal ROM Neurological/Psych: Oriented x3, Normal Speech, Normal Cognition, Normal Motor, Normal Sensation, Other (no focal deficits ) ED Course And Treatment - Laboratory Results Result Diagrams: 07/25/17 20:28 07/25/17 22:35 ECG: Interpreted By Me, Viewed By Me ECG Rhythm: Sinus Rhythm, ST/T Changes, Nonspecific Changes ECG Interpretation: No Acute Changes, Abnormal Interpretation Of ECG: NSR, non-spc. SR-T changes, abnormal tracings. Rate From EC O2 Sat by Pulse Oximetry: 99 (RA) Pulse Ox Interpretation: Normal Medical Decision Making Medical Decision Making: Administered IV fluids. Ordered EKG and blood work. Disposition Discussed With Dr.: Neto Matthews Doctor Will See Patient In The: Hospital Counseled Patient/Family Regarding: Diagnosis - Disposition Disposition: HOSPITALIZED Disposition Time: 23:22 Condition: STABLE Forms: [employer] (German) - POA Present On Arrival: None - Clinical Impression Clinical Impression: Hypoglycemia, Hypokalemia - Scribe Statement The provider has reviewed the documentation as recorded by the Debbieibminerva Edmonds All medical record entries made by the Debbieibminerva were at my direction and personally dictated by me. I have reviewed the chart and agree that the record accurately reflects my personal performance of the history, physical exam, medical decision making, and the department course for this patient. I have also personally directed, reviewed, and agree with the discharge instructions and disposition.
[2017-07-25] MEDS ORDERED: Sodium Chloride 0.9% 1,000 ML ONE (20:26)
[2017-07-25 20:32] LABS: BASO # 0.1 K/uL (0.0-0.2); EOS % 0.3 % (0.0-4.0); HEMOGLOBIN 12.5 g/dL (11.0-16.0); LYMPH # 0.9 K/uL (1.0-4.3); LYMPH % 12.7 % (20.0-40.0); MEAN CELL VOLUME 78.5 fL (81.0-99.0); MEAN CORPUSCULAR HEMOGLOBIN 25.8 pg (27.0-31.0); MEAN CORPUSCULAR HGB CONC 32.9 g/dL (33.0-37.0); MEAN PLATELET VOLUME 7.9 fL (7.2-11.7); MONO # 0.5 K/uL (0.0-0.8); MONO % 6.9 % (0.0-10.0); NEUT # 5.5 K/uL (1.8-7.0); NEUT % 79.1 % (50.0-75.0); RBC 4.86 Mil/uL (3.80-5.20); RED CELL DISTRIBUTION WIDTH 16.2 % (11.5-14.5)
[2017-07-25 20:44] LABS: CALCIUM 8.2 mg/dl (8.6-10.4); GFR AFRICAN-AMERICAN > 60; GFR NON-AFRICAN AMERICAN > 60
[2017-07-25 20:45] LABS: ALT/SGPT 20 U/L (9-52); AST/SGOT 37 U/L (14-36); BLOOD UREA NITROGEN 13 mg/dL (7-17)
[2017-07-25 22:49] LABS: BLOOD UREA NITROGEN 12 mg/dL (7-17); CALCIUM 8.3 mg/dl (8.6-10.4); GFR AFRICAN-AMERICAN > 60; GFR NON-AFRICAN AMERICAN > 60
[2017-07-25] MEDS ORDERED: Dextrose 5%/0.45% NS 1,000 ML IV ONE (22:55)
[2017-07-25] MEDS ORDERED: Dextrose 5%-0.225% NS 1,000 ML IV ONE (23:04)
[2017-07-25] MEDS ORDERED: Potassium Chloride 20 mEq ER Tab PO STA (23:06)
[2017-07-25] MEDS ORDERED: Potassium Chloride 20 mEq ER Tab PO ONE (23:12)
[2017-07-26] MEDS ORDERED: Dextrose 50% SYRINGE Inj (50 ml) IV STA (06:39)
[2017-07-26] MEDS ORDERED: Dextrose 50% SYRINGE Inj (50 ml) IV PRN (07:02)
[2017-07-26] MEDS ORDERED: Glucagon Recombinant 1 mg Inj IM PRN (07:02)
[2017-07-26 07:59] LABS: LDL CHOLESTEROL 46 mg/dL (0-129)
[2017-07-26 08:16] LABS: ALBUMIN 3.4 g/dL (3.5-5.0); ALT/SGPT 21 U/L (9-52); AST/SGOT 28 U/L (14-36); BLOOD UREA NITROGEN 11 mg/dL (7-17); CALCIUM 8.4 mg/dl (8.6-10.4); GFR AFRICAN-AMERICAN > 60; GFR NON-AFRICAN AMERICAN > 60; HDL CHOLESTEROL 27 mg/dL (30-70)
--- NOTE | 2017-07-26 08:52 | CON ---
DATE: ENDOCRINOLOGY CONSULT LOCATION: Room 350.HISTORY OF PRESENT ILLNESS: This is a 51-year-old female with known history of type 2 diabetes with near optimal metabolic control on oral hypoglycemic therapy and presenting here with sudden onset of confusion and generalized body weakness and supervening marked hypoglycemia with a glucose level of 28 mg/dL and is now being referred for diabetic evaluation and management. PAST MEDICAL HISTORY: As mentioned above, previous history of type 2 insulin requiring diabetes and was actually on a prior combination of Lantus and Humalog given as ordered. However because of remarkable metabolic response, she was taken off all insulin therapy and switched over to oral hypoglycemic therapy and was given Janumet 50/500 b.i.d. and the last A1c was 7% in my office a few months ago. History of hypertensive cardiovascular disease and dyslipidemia. FAMILY HISTORY: Positive for hypertension and diabetes. SOCIAL HISTORY: The patient's supportive family admits to prior history of smoking and also social use of alcohol. She has supportive family, otherwise. No other known illicit drug use. REVIEW OF SYSTEMS: No chest pains or palpitations but admits to progressive shortness of breath initially with exertion and then at rest with paroxysmal nocturnal dyspnea. Her oral intake has been variable with nausea, dyspepsia, and vague upper abdominal pain. Also admits to lower extremity paresthesia, especially nocturnally. PHYSICAL EXAMINATION: GENERAL: This is an average-built female, in no apparent distress. VITAL SIGNS: Blood pressure of 140/80, pulse of 70 beats per minute and regular, temperature 98, respirations 20, height is 5 feet and 6 inches, weight 164 pounds. HEENT: Head is normocephalic and anicteric with pink conjunctivae. Funduscopy not possible at this time. Ear, nose, and throat, otherwise, normal. NECK: Supple. Thyroid gland is normal in size. No carotid bruits or any cervical adenopathy. CARDIOPULMONARY: Some adynamic pericardium. S1 and S2 is rapid and regular. LUNGS: Clear to auscultation. ABDOMEN: Flat, soft with positive bowel sounds. EXTREMITIES: No peripheral edema. Pulses are +2 bilaterally. LABORATORY DATA: As mentioned above, the initial glucose was 28 mg/dL. The subsequent glucose after D50 bolus injection was till 73 mg/dL. The latest chemistries showed a BUN of 13, sodium 139, potassium 3.8, chloride 99, CO2 of 25, glucose 139, and creatinine 0.8. ASSESSMENT AND PLAN: This is a 51-year-old female with symptomatic hypoglycemia and associated neuroglycopenic and hyperadrenergic manifestations, currently on oral hypoglycemic therapy given in combination with Janumet given as 50/500 mg b.i.d. Quite surprising is the fact that the patient's list of medication does not include Janumet but instead has Amaryl 4 mg b.i.d. She also has overt neuroglycopenic and hyperadrenergic manifestations reversed by D50 bolus injections, and insulin dose therapy with D5 and half normal switched over to D10W as ordered. We will obtain the hemoglobin A1c to confirm her prior glycemic control and baseline thyroid function studies. Lipid panel will be ordered. We will observe her glycemic fluctuations overnight and if hyperglycemic levels supervene, then we will start her back on the low dose Januvia and metformin as indicated. We will hold off basal insulins for now. We will follow with you. Raeann Lyman MD
[2017-07-26] MEDS: Pantoprazole 40 mg EC Tab PO SCH (09:17)
[2017-07-26] MEDS: Enoxaparin 40 mg Syringe SC SCH (09:35)
[2017-07-26] MEDS ORDERED: Potassium Chloride 20 mEq ER Tab PO ONE (10:00)
--- NOTE | 2017-07-26 15:13 | PN ---
DATE: ENDO FOLLOWUP NOTE LOCATION: Room 350. SUBJECTIVE: This is a 51-year-old female with known history of type 2 diabetes, previously on insulin and has been switched over to a low dose oral hypoglycemic therapy and was apparently doing very well with her latest A1c of 7.0% as outpatient, developed sudden altered mental changes with confusion and disorientation and generalized body weakness and was evaluated to have symptomatic hypoglycemia with associated neuroglycopenic and hyperadrenergic manifestations of the same. She was given D50 bolus injections and had maintenance overnight of dextrose infusion as given. However, very early this morning she developed once again marked hypoglycemia with glucose level down to 30 mg/dL as noted, with associated dizziness, lightheadedness, and generalized body weakness. Her latest chemistries today shows a BUN of 11, sodium 144, potassium 3.4, chloride 103, CO2 29, glucose 31, and creatinine 0.8. Her TSH level is 2.08, with a cortisol level of 17.1 excluding any other underlying endocrinopathy. So, at this time we will continue the dextrose infusion as given and give her D50 bolus injections accordingly. She also has been encouraged to improve her oral intake accordingly. We will obtain a serum C-peptide level to ascertain induction of pancreatic as noted. We will also obtain serial chemistries and supplement accordingly as needed. We will follow. Raeann Lyman MD
[2017-07-26] MEDS: Potassium Chloride 20 mEq ER Tab PO SCH (17:55)
--- NOTE | 2017-07-26 18:05 | CP.PCM.HP ---
Past Patient History - Infectious Disease Hx of Infectious Diseases: None - Tetanus Immunizations Tetanus Immunization: Unknown - Past Medical History & Family History Past Medical History?: Yes - Past Social History Smoking Status: Current Some Days Smoker - CARDIAC Hx Hypercholesterolemia: Yes Hx Hypertension: Yes - PULMONARY Hx Respiratory Disorders: No - NEUROLOGICAL Hx Neurological Disorder: No - HEENT Hx HEENT Problems: No - RENAL Hx Chronic Kidney Disease: No - ENDOCRINE/METABOLIC Hx Endocrine Disorders: Yes Hx Diabetes Mellitus Type 2: Yes - HEMATOLOGICAL/ONCOLOGICAL Hx Anemia: Yes - INTEGUMENTARY Hx Dermatological Problems: No - MUSCULOSKELETAL/RHEUMATOLOGICAL Hx Musculoskeletal Disorders: No Hx Falls: No - GASTROINTESTINAL Hx Gastrointestinal Disorders: No - GENITOURINARY/GYNECOLOGICAL Hx Genitourinary Disorders: No - PSYCHIATRIC Hx Substance Use: No - SURGICAL HISTORY Hx Surgeries: Yes Hx Hysterectomy: Yes - ANESTHESIA Hx Anesthesia: Yes Hx Anesthesia Reactions: No Hx Malignant Hyperthermia: No Meds Allergies/Adverse Reactions: Allergies Allergy/AdvReac Type Severity Reaction Status Date / Time Sulfa (Sulfonamide Allergy Verified 10/20/16 09:13 Antibiotics) EGGPLANT Allergy Intermediate ITCHING Uncoded 10/20/16 09:13 Physical Exam - Constitutional Appears: Well - Head Exam Head Exam: ATRAUMATIC, NORMAL INSPECTION, NORMOCEPHALIC - Eye Exam Eye Exam: EOMI, Normal appearance, PERRL Pupil Exam: NORMAL ACCOMODATION, PERRL - ENT Exam ENT Exam: Mucous Membranes Moist, Normal Exam - Respiratory Exam Respiratory Exam: Decreased Breath Sounds - Cardiovascular Exam Cardiovascular Exam: REGULAR RHYTHM, +S1, +S2 - GI/Abdominal Exam GI & Abdominal Exam: Diminished Bowel Sounds, Soft - Rectal Exam Rectal Exam: Deferred Results - Vital Signs Recent Vital Signs: Last Vital Signs Temp 98.6 F 07/26/17 15:50 Pulse 68 07/26/17 15:50 Resp 20 07/26/17 15:50 BP 117/78 07/26/17 15:50 Pulse Ox 98 07/26/17 15:50 - Labs Result Diagrams: 07/25/17 20:28 07/26/17 07:17 Labs: Laboratory Results - last 24 hr 07/25/17 07/25/17 07/25/17 20:00 20:28 20:28 WBC 7.0 RBC 4.86 Hgb 12.5 Hct 38.1 MCV 78.5 L MCH 25.8 L MCHC 32.9 L RDW 16.2 H Plt Count 288 MPV 7.9 Neut % (Auto) 79.1 H Lymph % (Auto) 12.7 L Payette % (Auto) 6.9 Eos % (Auto) 0.3 Baso % (Auto) 1.0 Neut # (Auto) 5.5 Lymph # (Auto) 0.9 L Payette # (Auto) 0.5 Eos # (Auto) 0.0 Baso # (Auto) 0.1 Sodium 139 Potassium 3.8 Chloride 99 Carbon Dioxide 25 Anion Gap 18 BUN 13 Creatinine 0.8 Est GFR ( Amer) > 60 Est GFR (Non-Af Amer) > 60 POC Glucose (mg/dL) 151 H Random Glucose 139 H Calcium 8.2 L Total Bilirubin 0.7 AST 37 H ALT 20 Alkaline Phosphatase 58 Total Protein 7.9 Albumin 4.0 Globulin 3.9 Albumin/Globulin Ratio 1.0 Triglycerides Cholesterol LDL Cholesterol Direct HDL Cholesterol TSH 3rd Generation Cortisol AM Sample 07/25/17 07/25/17 07/26/17 22:13 22:35 02:35 WBC RBC Hgb Hct MCV MCH MCHC RDW Plt Count MPV Neut % (Auto) Lymph % (Auto) Payette % (Auto) Eos % (Auto) Baso % (Auto) Neut # (Auto) Lymph # (Auto) Payette # (Auto) Eos # (Auto) Baso # (Auto) Sodium 142 Potassium 3.1 L Chloride 101 Carbon Dioxide 27 Anion Gap 17 BUN 12 Creatinine 0.8 Est GFR ( Amer) > 60 Est GFR (Non-Af Amer) > 60 POC Glucose (mg/dL) 73 84 Random Glucose 74 Calcium 8.3 L Total Bilirubin AST ALT Alkaline Phosphatase Total Protein Albumin Globulin Albumin/Globulin Ratio Triglycerides Cholesterol LDL Cholesterol Direct HDL Cholesterol TSH 3rd Generation Cortisol AM Sample 07/26/17 07/26/17 07/26/17 06:35 06:37 07:07 WBC RBC Hgb Hct MCV MCH MCHC RDW Plt Count MPV Neut % (Auto) Lymph % (Auto) Payette % (Auto) Eos % (Auto) Baso % (Auto) Neut # (Auto) Lymph # (Auto) Payette # (Auto) Eos # (Auto) Baso # (Auto) Sodium Potassium Chloride Carbon Dioxide Anion Gap BUN Creatinine Est GFR ( Amer) Est GFR (Non-Af Amer) POC Glucose (mg/dL) 33 L* 30 L* 223 H Random Glucose Calcium Total Bilirubin AST ALT Alkaline Phosphatase Total Protein Albumin Globulin Albumin/Globulin Ratio Triglycerides Cholesterol LDL Cholesterol Direct HDL Cholesterol TSH 3rd Generation Cortisol AM Sample 07/26/17 07/26/17 07/26/17 07:17 07:17 11:04 WBC RBC Hgb Hct MCV MCH MCHC RDW Plt Count MPV Neut % (Auto) Lymph % (Auto) Payette % (Auto) Eos % (Auto) Baso % (Auto) Neut # (Auto) Lymph # (Auto) Payette # (Auto) Eos # (Auto) Baso # (Auto) Sodium 144 Potassium 3.4 L Chloride 103 Carbon Dioxide 29 Anion Gap 15 BUN 11 Creatinine 0.8 Est GFR ( Amer) > 60 Est GFR (Non-Af Amer) > 60 POC Glucose (mg/dL) 151 H Random Glucose 31 L* D Calcium 8.4 L Total Bilirubin 0.3 AST 28 ALT 21 Alkaline Phosphatase 57 Total Protein 6.8 Albumin 3.4 L Globulin 3.4 Albumin/Globulin Ratio 1.0 Triglycerides 69 Cholesterol 97 LDL Cholesterol Direct 46 HDL Cholesterol 27 L TSH 3rd Generation 2.08 Cortisol AM Sample 17.1 07/26/17 15:02 WBC RBC Hgb Hct MCV MCH MCHC RDW Plt Count MPV Neut % (Auto) Lymph % (Auto) Payette % (Auto) Eos % (Auto) Baso % (Auto) Neut # (Auto) Lymph # (Auto) Payette # (Auto) Eos # (Auto) Baso # (Auto) Sodium Potassium Chloride Carbon Dioxide Anion Gap BUN Creatinine Est GFR ( Amer) Est GFR (Non-Af Amer) POC Glucose (mg/dL) 159 H Random Glucose Calcium Total Bilirubin AST ALT Alkaline Phosphatase Total Protein Albumin Globulin Albumin/Globulin Ratio Triglycerides Cholesterol LDL Cholesterol Direct HDL Cholesterol TSH 3rd Generation Cortisol AM Sample
[2017-07-26] MEDS: Sodium Chloride 0.45% 1,000 ML IV SCH (20:18)
[2017-07-26] MEDS: Rosuvastatin Calcium 2.5 mg Tab PO SCH (21:09)
[2017-07-26] MEDS ORDERED: Home Med 1 UNIT (Simvastatin [Simvastatin] 5 MG) PO SCH (22:00)
[2017-07-27] MEDS: (Novolog) Insulin Aspart, Recombinant 100 u/ml 10 ml vial SC SCH ×4 (07:19→21:29)
[2017-07-27 08:00] LABS: BASO % 0.8 % (0.0-2.0); EOS # 0.3 K/uL (0.0-0.7); EOS % 6.3 % (0.0-4.0); HEMOGLOBIN 11.8 g/dL (11.0-16.0); LYMPH # 2.2 K/uL (1.0-4.3); LYMPH % 44.1 % (20.0-40.0); MEAN CELL VOLUME 79.2 fL (81.0-99.0); MEAN CORPUSCULAR HEMOGLOBIN 26.4 pg (27.0-31.0); MEAN CORPUSCULAR HGB CONC 33.3 g/dL (33.0-37.0); MEAN PLATELET VOLUME 8.7 fL (7.2-11.7); MONO # 0.5 K/uL (0.0-0.8); MONO % 10.3 % (0.0-10.0); NEUT # 1.9 K/uL (1.8-7.0); NEUT % 38.5 % (50.0-75.0); RBC 4.46 Mil/uL (3.80-5.20); RED CELL DISTRIBUTION WIDTH 15.9 % (11.5-14.5)
[2017-07-27 08:11] LABS: ALBUMIN 3.3 g/dL (3.5-5.0); ALT/SGPT 27 U/L (9-52); AST/SGOT 24 U/L (14-36); BLOOD UREA NITROGEN 15 mg/dL (7-17); CALCIUM 8.6 mg/dl (8.6-10.4); GFR AFRICAN-AMERICAN > 60; GFR NON-AFRICAN AMERICAN > 60
[2017-07-27] MEDS: Sodium Chloride 0.45% 1,000 ML IV SCH (09:39)
[2017-07-27] MEDS: Potassium Chloride 20 mEq ER Tab PO SCH (09:39)
[2017-07-27] MEDS: Pantoprazole 40 mg EC Tab PO SCH (09:39)
[2017-07-27] MEDS: Enoxaparin 40 mg Syringe SC SCH ×2 (09:40→10:55)
[2017-07-27] MEDS ORDERED: Pneumococcal 23-Valent Vaccine IM ONE (10:00)
--- NOTE | 2017-07-27 15:10 | CP.PCM.PN ---
Subjective - Date & Time of Evaluation Date of Evaluation: 07/27/17 Time of Evaluation: 08:40 - Subjective Subjective: clinically same Objective - Vital Signs/Intake and Output Vital Signs (last 24 hours): Temp Pulse Resp BP Pulse Ox 98.6 F 75 20 129/76 100 07/27/17 08:00 07/27/17 08:00 07/27/17 08:00 07/27/17 09:39 07/27/17 08:00 Intake and Output: 07/27/17 07/27/17 06:59 18:59 Intake Total 810 Balance 810 - Medications Medications: Current Medications Amlodipine Besylate (Norvasc) 2.5 mg PO DAILY [facility] Last Admin: 07/27/17 09:39 Dose: 2.5 mg Dextrose (Dextrose 50% Inj) 0 ml IV STAT PRN; Protocol PRN Reason: Hypoglycemia Protocol Dextrose (Glutose 15) 0 gm PO ONCE PRN; Protocol PRN Reason: Hypoglycemia Protocol Enoxaparin Sodium (Lovenox) 40 mg SC DAILY [facility] Last Admin: 07/27/17 10:55 Dose: 40 mg Glucagon (Glucagen Diagnostic Kit) 0 mg IM STAT PRN; Protocol PRN Reason: Hypoglycemia Protocol Dextrose (Dextrose 5% In Water 1000 Ml) 1,000 mls @ 0 mls/hr IV .Q0M PRN; Protocol; Per Protocol PRN Reason: Hypoglycemia Protocol Sodium Chloride (Sodium Chloride 0.45%) 1,000 mls @ 75 mls/hr IV .[id number] [facility] Last Admin: 07/27/17 09:39 Dose: 75 mls/hr Insulin Aspart (Novolog) 0 unit SC ACHS [facility] Last Admin: 07/27/17 11:55 Dose: Not Given Losartan Potassium (Cozaar) 50 mg PO DAILY [facility] Last Admin: 07/27/17 09:39 Dose: 50 mg Metoprolol Tartrate (Lopressor) 25 mg PO BID [facility] Last Admin: 07/27/17 09:39 Dose: 25 mg Pantoprazole Sodium (Protonix Ec Tab) 40 mg PO DAILY [facility] Last Admin: 07/27/17 09:39 Dose: 40 mg Potassium Chloride (K-Dur 20 Meq Er Tab) 20 meq PO DAILY [facility] Last Admin: 07/27/17 09:39 Dose: 20 meq Rosuvastatin Calcium (Crestor) 2.5 mg PO HS [facility] Last Admin: 07/26/17 21:09 Dose: 2.5 mg Sitagliptin Phosphate (Januvia) 50 mg PO DAILY [facility] Last Admin: 07/27/17 09:39 Dose: 50 mg - Labs Labs: 07/27/17 07:40 07/27/17 07:40 - Constitutional Appears: Well - Head Exam Head Exam: ATRAUMATIC, NORMAL INSPECTION, NORMOCEPHALIC - Eye Exam Eye Exam: EOMI, Normal appearance, PERRL Pupil Exam: NORMAL ACCOMODATION, PERRL - ENT Exam ENT Exam: Mucous Membranes Moist, Normal Exam - Neck Exam Neck Exam: Full ROM, Normal Inspection. absent: Lymphadenopathy - Respiratory Exam Respiratory Exam: Decreased Breath Sounds - Cardiovascular Exam Cardiovascular Exam: REGULAR RHYTHM, +S1, +S2 - GI/Abdominal Exam GI & Abdominal Exam: Soft, Diminished Bowel Sounds - Rectal Exam Rectal Exam: Deferred
--- NOTE | 2017-07-27 18:16 | PN ---
DATE: 07/27/2017 ENDO FOLLOWUP NOTE Room 350 SUBJECTIVE: This is a 51-year-old female with a recent uncontrolled type 2 diabetes presenting here with symptomatic hypoglycemia and associated neuroglycopenic and hyperactive neurogenic manifestations reversed by D50 bolus injections and also dextrose infusion given as maintenance fluids thereof. She has since then been taken off the D10W and switched over now to half normal saline at 75 mL per hour overnight as noted. Her glucose levels have improved and have ranged from 131 to 171 mg/dL. It was 160 at bedtime last night. The latest chemistries showed a BUN of 15, sodium 140, potassium 4.4, chloride 103, CO2 of 27, glucose 141, and creatinine 0.9. ASSESSMENT AND PLAN: This is a 51-year-old female with symptomatic hypoglycemia with associated neuroglycopenic and hypoadrenergic manifestations related to some optimal oral intake and was actually only on a liquid diet about two days or so prior to admission because of viral gastroenteritis on further detailed enquiry with the patient yesterday in the hospital. She actually had near optimal metabolic control on a low dose oral hypoglycemic therapy as outpatient with a last A1c of 7% on a combination of Janumet given as 50/500 b.i.d. and Amaryl given as 4 mg b.i.d. as noted. PLAN OF MANAGEMENT: As discussed with the patient at length at bedside. Because of the variability of oral intake at this time with suboptimal meal portions, we will hold off the Amaryl medications for now and keep her only on Januvia given as 50 mg once daily as ordered. After oral intake improves on the outpatient, she can resume at least her Janumet given as 50/500 b.i.d. as indicated. We will continue the IV hydration and also obtain serial chemistries and supplement accordingly as needed. We will follow. Raeann Lyman MD
[2017-07-27] MEDS: Rosuvastatin Calcium 2.5 mg Tab PO SCH (21:29)
[2017-07-28 06:20] LABS: BASO % 0.8 % (0.0-2.0); EOS # 0.4 K/uL (0.0-0.7); EOS % 6.5 % (0.0-4.0); HEMOGLOBIN 12.2 g/dL (11.0-16.0); LYMPH # 2.6 K/uL (1.0-4.3); LYMPH % 44.7 % (20.0-40.0); MEAN CELL VOLUME 78.6 fL (81.0-99.0); MEAN CORPUSCULAR HEMOGLOBIN 26.2 pg (27.0-31.0); MEAN CORPUSCULAR HGB CONC 33.4 g/dL (33.0-37.0); MEAN PLATELET VOLUME 8.6 fL (7.2-11.7); MONO # 0.5 K/uL (0.0-0.8); MONO % 8.9 % (0.0-10.0); NEUT # 2.3 K/uL (1.8-7.0); NEUT % 39.1 % (50.0-75.0); RBC 4.66 Mil/uL (3.80-5.20); RED CELL DISTRIBUTION WIDTH 15.9 % (11.5-14.5); WHITE BLOOD COUNT 5.9 K/uL (4.8-10.8)
[2017-07-28 07:39] VITALS: BP 151/76; PULSE 62; TEMP 98.4; O2SAT 99
[2017-07-28] MEDS: (Novolog) Insulin Aspart, Recombinant 100 u/ml 10 ml vial SC SCH ×2 (07:45→11:43)
[2017-07-28] MEDS: Potassium Chloride 20 mEq ER Tab PO SCH (10:10)
[2017-07-28] MEDS: Pantoprazole 40 mg EC Tab PO SCH (10:10)
[2017-07-28] MEDS: Enoxaparin 40 mg Syringe SC SCH (10:11)
--- NOTE | 2017-07-28 11:41 | CP.PCM.PN ---
Subjective - Date & Time of Evaluation Date of Evaluation: 07/28/17 Time of Evaluation: 11:35 - Subjective Subjective: PGY [address] Matthews 51 year old female with past medical history of NIDDM, HTN, HLD, CAD who was admitted to hospital for hypoglycemia. Patient states that in the past week, she had "the flu" along with diarrhea and abdominal pain. She was seen by her PMD who had given patient medication for the diarrhea and the flu. She does not recall the name of the meds. Pt states that PMD also told her to remain on CLD at home for a few days until the diarrhea improves. Patient states that 3 days ago, she developed confusion and weakness and pt was noted to have BS of 28. Patient is only taking Janumet 50/500 mg at home. Pt seen and examined at bedside. No acute events overnight. Pt states that her appetite has improved and she is eating more. patient denies having any N/V /D/C, abd pain, F/C, myalgias, CP, SOB. Objective - Vital Signs/Intake and Output Vital Signs (last 24 hours): Temp Pulse Resp BP Pulse Ox 98.4 F 62 20 151/76 H 99 07/28/17 07:37 07/28/17 07:37 07/28/17 07:37 07/28/17 10:10 07/28/17 07:37 Intake and Output: 07/28/17 07/28/17 06:59 18:59 Intake Total 1320 Balance 1320 - Medications Medications: Current Medications Amlodipine Besylate (Norvasc) 2.5 mg PO DAILY [facility] Last Admin: 07/28/17 10:11 Dose: 2.5 mg Dextrose (Dextrose 50% Inj) 0 ml IV STAT PRN; Protocol PRN Reason: Hypoglycemia Protocol Dextrose (Glutose 15) 0 gm PO ONCE PRN; Protocol PRN Reason: Hypoglycemia Protocol Enoxaparin Sodium (Lovenox) 40 mg SC DAILY [facility] Last Admin: 07/28/17 10:11 Dose: 40 mg Glucagon (Glucagen Diagnostic Kit) 0 mg IM STAT PRN; Protocol PRN Reason: Hypoglycemia Protocol Dextrose (Dextrose 5% In Water 1000 Ml) 1,000 mls @ 0 mls/hr IV .Q0M PRN; Protocol; Per Protocol PRN Reason: Hypoglycemia Protocol Sodium Chloride (Sodium Chloride 0.45%) 1,000 mls @ 75 mls/hr IV .[id number] [facility] Last Admin: 07/27/17 09:39 Dose: 75 mls/hr Insulin Aspart (Novolog) 0 unit SC ACHS [facility] Last Admin: 07/28/17 07:45 Dose: Not Given Losartan Potassium (Cozaar) 50 mg PO DAILY [facility] Last Admin: 07/28/17 10:10 Dose: 50 mg Metoprolol Tartrate (Lopressor) 25 mg PO BID [facility] Last Admin: 07/28/17 10:10 Dose: 25 mg Pantoprazole Sodium (Protonix Ec Tab) 40 mg PO DAILY [facility] Last Admin: 07/28/17 10:10 Dose: 40 mg Potassium Chloride (K-Dur 20 Meq Er Tab) 20 meq PO DAILY [facility] Last Admin: 07/28/17 10:10 Dose: 20 meq Rosuvastatin Calcium (Crestor) 2.5 mg PO HS [facility] Last Admin: 07/27/17 21:29 Dose: 2.5 mg Sitagliptin Phosphate (Januvia) 50 mg PO DAILY [facility] Last Admin: 07/28/17 10:10 Dose: 50 mg - Labs Labs: 07/28/17 06:11 07/27/17 07:40 - Constitutional Appears: Non-toxic, No Acute Distress - Head Exam Head Exam: ATRAUMATIC - ENT Exam ENT Exam: Mucous Membranes Moist - Respiratory Exam Respiratory Exam: Clear to Ausculation Bilateral. absent: Rales, Rhonchi, Wheezes - Cardiovascular Exam Cardiovascular Exam: REGULAR RHYTHM, +S1, +S2. absent: Gallop, Rubs - GI/Abdominal Exam GI & Abdominal Exam: Soft, Normal Bowel Sounds. absent: Distended, Firm, Guarding, Rigid, Tenderness, Organomegaly - Extremities Exam Extremities Exam: absent: Pedal Edema, Tenderness - Neurological Exam Neurological Exam: Alert, Awake, Oriented x3 - Psychiatric Exam Psychiatric exam: Normal Affect, Normal Mood - Skin Skin Exam: Dry, Intact, Normal Color, Warm Assessment and Plan - Assessment and Plan (Free Text) Assessment: 51 year old female with past medical history of NIDDM, HTN, HLD, CAD is admitted for symptomatic hypoglycemia NIDDM - Hgb A1c on admission was 6.5 - Endocrinilogist, Dr. Lyman is consulted. Appreciate recommendations - Pt currently on Januvia . Once patient has better PO intake, will switch pt to Janumet 50-500 mg po BID per endo recs. - Currently on hypoglycemia protocol - Accuchecks ACHS - C peptide pending - Currently on NS 75 cc. Since pt's PO intake has increased, will consider D/ Cing fluids. HTN - Continue home medications: Cozaar, lopressor and Norvasc - Continue to monitor VS HLD - Continue home med: Crestor Prophylaxis - Protonix - Lovenox Case will be discussed with attending, Dr. Matthews. All managements and orders per Dr. Matthews Patient is stable for discharge home per Dr. Matthews Patient is to follow up with Dr. Matthews upon discharge. Patient is also to follow up with associate professor of art upon discharge. Patient is instructed to hold the Amaryl. Patient is to take the Janumet once a day at bed time. Patient is instructed to check her blood sugar at home BID. Patient will follow up with associate professor of art for further medication instruction. Patient is to continue taking the rest of her home medications as prescribed. Please return to the ED if symptoms worsen.
[2017-07-28 11:56] LABS: ALB/GLOB RATIO 1.1 (1.0-2.1); ALBUMIN 3.6 g/dL (3.5-5.0); ALT/SGPT 22 U/L (9-52); AST/SGOT 27 U/L (14-36); BLOOD UREA NITROGEN 17 mg/dL (7-17); CALCIUM 8.9 mg/dl (8.6-10.4); GFR AFRICAN-AMERICAN > 60; GFR NON-AFRICAN AMERICAN > 60
--- NOTE | 2017-07-28 13:47 | CP.PCM.PN ---
Subjective - Date & Time of Evaluation Date of Evaluation: 07/28/17 Time of Evaluation: 10:00 - Subjective Subjective: clinically same Objective - Vital Signs/Intake and Output Vital Signs (last 24 hours): Temp Pulse Resp BP Pulse Ox 98.4 F 62 20 151/76 H 99 07/28/17 07:37 07/28/17 07:37 07/28/17 07:37 07/28/17 10:10 07/28/17 07:37 Intake and Output: 07/28/17 07/28/17 06:59 18:59 Intake Total 1320 Balance 1320 - Medications Medications: Current Medications Amlodipine Besylate (Norvasc) 2.5 mg PO DAILY [facility] Last Admin: 07/28/17 10:11 Dose: 2.5 mg Dextrose (Dextrose 50% Inj) 0 ml IV STAT PRN; Protocol PRN Reason: Hypoglycemia Protocol Dextrose (Glutose 15) 0 gm PO ONCE PRN; Protocol PRN Reason: Hypoglycemia Protocol Enoxaparin Sodium (Lovenox) 40 mg SC DAILY [facility] Last Admin: 07/28/17 10:11 Dose: 40 mg Glucagon (Glucagen Diagnostic Kit) 0 mg IM STAT PRN; Protocol PRN Reason: Hypoglycemia Protocol Dextrose (Dextrose 5% In Water 1000 Ml) 1,000 mls @ 0 mls/hr IV .Q0M PRN; Protocol; Per Protocol PRN Reason: Hypoglycemia Protocol Sodium Chloride (Sodium Chloride 0.45%) 1,000 mls @ 75 mls/hr IV .[id number] [facility] Last Admin: 07/27/17 09:39 Dose: 75 mls/hr Insulin Aspart (Novolog) 0 unit SC ACHS [facility] Last Admin: 07/28/17 11:43 Dose: Not Given Losartan Potassium (Cozaar) 50 mg PO DAILY [facility] Last Admin: 07/28/17 10:10 Dose: 50 mg Metoprolol Tartrate (Lopressor) 25 mg PO BID [facility] Last Admin: 07/28/17 10:10 Dose: 25 mg Pantoprazole Sodium (Protonix Ec Tab) 40 mg PO DAILY [facility] Last Admin: 07/28/17 10:10 Dose: 40 mg Potassium Chloride (K-Dur 20 Meq Er Tab) 20 meq PO DAILY [facility] Last Admin: 07/28/17 10:10 Dose: 20 meq Rosuvastatin Calcium (Crestor) 2.5 mg PO HS [facility] Last Admin: 07/27/17 21:29 Dose: 2.5 mg Sitagliptin Phosphate (Januvia) 50 mg PO DAILY [facility] Last Admin: 07/28/17 10:10 Dose: 50 mg - Labs Labs: 07/28/17 06:11 07/28/17 11:24 - Constitutional Appears: Well - Head Exam Head Exam: ATRAUMATIC, NORMAL INSPECTION, NORMOCEPHALIC - Eye Exam Eye Exam: EOMI, Normal appearance, PERRL Pupil Exam: NORMAL ACCOMODATION, PERRL - ENT Exam ENT Exam: Mucous Membranes Moist, Normal Exam - Neck Exam Neck Exam: Full ROM, Normal Inspection. absent: Lymphadenopathy - Respiratory Exam Respiratory Exam: Decreased Breath Sounds - Cardiovascular Exam Cardiovascular Exam: REGULAR RHYTHM, +S1, +S2 - GI/Abdominal Exam GI & Abdominal Exam: Soft, Diminished Bowel Sounds - Rectal Exam Rectal Exam: Deferred
--- NOTE | 2017-07-28 17:01 | CARD ---
APPROVED REPORT EKG Measurement Heart [id number] <Conclusion> Normal sinus rhythm Nonspecific T wave abnormality Abnormal ECG
--- NOTE | 2017-07-28 23:15 | PN ---
DATE: ENDOCRINOLOGY FOLLOWUP NOTE LOCATION: Room 350 This is a 51-year-old female with recent uncontrolled type 2 diabetes presenting here with symptomatic hypoglycemia and associated neuroglycopenic and hyperadrenergic manifestations, related to suboptimal oral intake from a recent viral gastroenteritis. Her glucose values have since then improved. Her oral intake also has improved as inpatient, and the glucose readings have ranged from 143 to 174 and 218 mg/dL. Her latest chemistry showed a BUN of 17, sodium 137, potassium 4.3, chloride 99, CO2 of 27, glucose 238, creatinine 0.9. So at this time, we will resume the patient's Janumet given as 50/500 once a day and will titrate to b.i.d. as her oral intake improved thereof. At this time, she has been placed on Januvia, only for inpatient use of 100 mg once daily as given. We will hold off the initiation of Amaryl given as 4 mg b.i.d. as ordered, pending the improvement of oral intake. Her latest hemoglobin A1c was actually 6.5% as noted. We will follow and advise accordingly. Raeann Lyman MD
[2017-07-29 14:18] LABS: C-PEPTIDE 1.65 ng/mL (0.80-3.85)
== END 2017-07-28 16:55 | disposition home or self-care (01) | DRG 639 ==
LOC: C.ER 19:52 → C.9E 23:18 → C.3T 23:39 → OBSVTOIN 07-26 12:56
PROVIDERS: ADMIT Internal Medicine Nephrology; ATTEND Internal Medicine Nephrology
DX: E11.649 Type 2 diabetes mellitus with hypoglycemia without coma (principal); A08.4 Viral intestinal infection, unspecified; E78.5 Hyperlipidemia, unspecified; I11.9 Hypertensive heart disease without heart failure; F17.200 Nicotine dependence, unspecified, uncomplicated; E87.6 Hypokalemia; I25.10 Atherosclerotic heart disease of native coronary artery without angina pectoris; Z79.4 Long term (current) use of insulin; Z90.710 Acquired absence of both cervix and uterus

== ENCOUNTER 2018-05-19 06:42 | Day surgery (SDC) | payer BC ==
[2018-05-19] MEDS ORDERED: Lactated Ringer's 1,000 ML IV ONE (08:28)
--- NOTE | 2018-05-19 08:31 | CP.SDSHP ---
Same Day Surgery H & P - History Proposed Procedure: COLONSCOPY / EGD Pre-Op Diagnosis: SEE NOTES - Previous Medical/Surgical History Cardiac: Hypertension Endocrine/Metabolic: Diabetes, Other Previous Surgical History: S/P HYSTRECTOMY - Allergies Allergies: Allergies Sulfa (Sulfonamide Antibiotics) Allergy (Verified 10/20/16 09:13) EGGPLANT Allergy (Intermediate, Uncoded 10/20/16 09:13) ITCHING - Physical Exam General Appearance: N Vital Signs: Vital Signs 05/19/18 07:07 Temperature 97.7 F Pulse Rate 73 Respiratory 19 Rate Blood Pressure 130/76 O2 Sat by Pulse 100 Oximetry Mental Status: Alert & Oriented x3 Neuro: WNL Heart: Other Lungs: WNL GI: Other - {Optional Preform as Required} Breast: WNL Abdomen: Other Rectal: Other Integument: WNL : WNL Ortho: WNL ENT: WNL - Impression Pt. Evaluated Today:Candidate for Anesthesia & Procedure: Yes - Date & Time Time: 08:31 Short Stay Discharge - Short Stay Discharge Admitting Diagnosis/Reason for Visit: WEIGHT LOSS Disposition: HOME/ ROUTINE
[2018-05-19] MEDS ORDERED: Propofol 10 mg/ml Inj (20 ML) ONE (08:33)
[2018-05-19] MEDS ORDERED: Lidocaine Hydrochloride 5 ML INJ ONE (08:33)
[2018-05-19 10:41] VITALS: TEMP 97
[2018-05-19 10:43] VITALS: O2SAT 100
[2018-05-19 10:48] VITALS: BP 138/75; PULSE 65; RESP 18
== END 2018-05-19 10:45 | disposition home or self-care (01) ==
LOC: C.ENDO 06:42
PROVIDERS: ATTEND Specialist
DX: K29.50 Unspecified chronic gastritis without bleeding (principal); K44.9 Diaphragmatic hernia without obstruction or gangrene; K31.89 Other diseases of stomach and duodenum; K30 Functional dyspepsia; R63.4 Abnormal weight loss; R10.84 Generalized abdominal pain; K64.8 Other hemorrhoids; K64.4 Residual hemorrhoidal skin tags; K58.9 Irritable bowel syndrome, unspecified; E11.9 Type 2 diabetes mellitus without complications; I10 Essential (primary) hypertension; E78.5 Hyperlipidemia, unspecified
CPT/HCPCS: 43239; 45380; 82948; 88305; J2704; J7120